=== PATIENT | male | born 1980 | race Caucasian/White ===

== ENCOUNTER 2018-02-16 16:50 | Emergency (ER) | payer MEDICAID ==
[2018-02-16] MEDS ORDERED: cephALEXin 250 MG CAPSULE PO STA (17:54)
[2018-02-16] MEDS ORDERED: oxyCOD/ACETAMIN 5 MG/325 MG TABLET PO STA (17:54)
[2018-02-16 18:57] VITALS: BP 120/57
--- NOTE | 2018-02-16 18:59 | ED Physician Documentation ---
History of Present Illness - Stated complaint Stated Complaint: LT INDEX FINGER PX - Chief complaint Chief Complaint: General - Additonal information Additional information: hx from pt healthy 37 y/o male was doing yard work wearing gloves and now his L index finger is painful and swoleln distally, he doesnt know if he has a splinter, also has onychomycosis Review of Systems Constitutional: denies: Fever Musculoskeletal: reports: Extremity pain, Extremity swelling Immunocompromised: denies: Immunocompromised PD PAST MEDICAL HISTORY - Past Medical History Past Medical History: Yes Cardiovascular: None Respiratory: Asthma Endocrine/Autoimmune: None Psych: Bipolar disorder, Other Derm: Psoriasis - Past Surgical History Past Surgical History: Yes Ortho: Spine surgery HEENT: Other - Present Medications Home Medications: Ambulatory Orders Medication Instructions Recorded Confirmed Cephalexin [Keflex] 500 mg PO Q6H #28 capsule 02/16/18 Ibuprofen [Motrin] 400 mg PO Q6H PRN #20 tablet 02/16/18 Oxycodone HCl/Acetaminophen 1 - 2 each PO Q6HR PRN #8 tablet 02/16/18 [Percocet 5-325 mg Tablet] - Allergies Allergies/Adverse Reactions: Allergies Allergy/AdvReac Type Severity Reaction Status Date / Time No Known Drug Allergies Allergy Verified 02/16/18 16:58 - Social History Does the pt smoke?: Yes Smoking Status: Current every day smoker Does the pt drink ETOH?: Yes Does the pt have substance abuse?: No - Immunizations Immunizations are current?: Yes Immunizations: TDAP current <10years - POLST Patient has POLST: No PD ED PE NORMAL - Vitals Vital signs reviewed: Yes - Derm Derm: Other (L hand finger tip to DIP is painddul and swoelln diffusely, no specifically a felon or paronychia, no streaking, pain with ROM, MSV intact, no palpabl or visible retained FB and also checked with bedside sono using 250ml saline bag as a stand off and no FB seen on sono either, xray unlikely to help for organic FB concern) Results - Vitals Vitals: Vital Signs - 24 hr 02/16/18 16:57 Temperature 35.4 C L Heart Rate 68 Respiratory 18 Rate Blood Pressure 121/67 O2 Saturation 98 Oxygen O2 Source Room air Departure - Departure Disposition: 01 Home, Self Care Clinical Impression: Cellulitis of finger of left hand Condition: Good Instructions: ED Infec Skin Cellulitis Follow-Up: Negrito Gibbons MD [Primary Care Provider] - Prescriptions: Oxycodone HCl/Acetaminophen [Percocet 5-325 mg Tablet] 1 - 2 each PO Q6HR PRN # 8 tablet PRN Reason: Severe Pain Cephalexin [Keflex] 500 mg PO Q6H #28 capsule Ibuprofen [Motrin] 400 mg PO Q6H PRN #20 tablet PRN Reason: Pain Comments: Give the antibiotics a chance to work overnight (another dose before bed and one in the morning, then continue every 6 hr) If not improving by tomorrow morning, come back and see me in the ER any time after 7 AM Motrin and percocet for the pain Forms: Activity restrictions
== END 2018-02-16 19:02 | disposition home or self-care (01) ==
LOC: ED 16:50
DX: L03.012 Cellulitis of left finger (principal); J45.909 Unspecified asthma, uncomplicated; F17.200 Nicotine dependence, unspecified, uncomplicated
CPT/HCPCS: 99283; A9270

== ENCOUNTER 2018-02-18 11:56 | Emergency (ER) | payer MEDICAID ==
[2018-02-18 12:03] VITALS: BP 140/75
--- NOTE | 2018-02-18 13:16 | XRAY Preliminary Report ---
Exam: XR FINGER(S) LT IMPRESSION: Markedly abnormal distal two thirds second distal phalanx. Differential includes recent c rendon fracture and partial amputation versus osteomyelitis. Correlate clinically to differentiate. [facility] SITE ID: [id number]
--- NOTE | 2018-02-18 13:21 | XRAY Report ---
EXAM: LEFT SECOND/INDEX DIGIT RADIOGRAPHY EXAM DATE: 02/18/2018 01:01 PM. CLINICAL HISTORY: Swelling, pain distal phalanx left index finger. COMPARISON: None. TECHNIQUE: 3 views. FINDINGS: Bones: Comminuted fragmentation of the demineralized and small volume of bone involving the distal tw o-thirds second distal phalanx. Sharp demarcation transversely along the proximal metaphysis with the base of this bone normal caliber and normally ossified. Joints: Normal. No subluxations. Soft Tissues: Extensive edema tip of the finger. No radiopaque foreign body. IMPRESSION: Markedly abnormal distal two-thirds second distal phalanx. Differential includes recent c rendon fracture with partial amputation versus osteomyelitis. Correlate clinically to differentiate. [facility] Referring Provider Line: [phone] SITE ID: [id number]
--- NOTE | 2018-02-18 13:45 | ED Physician Documentation ---
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 The swelling started at least 1 week ago and has been gradually increasing since that time. He was seen in the emergency department here 2 days ago and a bedside ultrasound was performed, revealing no evidence of foreign body or fluid collection. He was started on cephalexin at that time. He returns today because of persistent swelling and increased pain. He denies any recent traumatic injury. He is right-hand dominant. Tetanus status is up-to-date. Review of Systems Constitutional: denies: Fever GI: denies: Nausea, Vomiting Skin: denies: Rash Musculoskeletal: reports: Extremity swelling (Left index fingertip.) Neurologic: denies: Focal weakness, Numbness PD PAST MEDICAL HISTORY - Past Medical History Past Medical History: Yes Cardiovascular: None Respiratory: Asthma Endocrine/Autoimmune: None Psych: Bipolar disorder, Other Derm: Psoriasis - Past Surgical History Past Surgical History: Yes Ortho: Spine surgery HEENT: Other - Present Medications Home Medications: Ambulatory Orders Medication Instructions Recorded Confirmed Cephalexin [Keflex] 500 mg PO Q6H #28 capsule 02/16/18 02/18/18 - Allergies Allergies/Adverse Reactions: Allergies Allergy/AdvReac Type Severity Reaction Status Date / Time No Known Drug Allergies Allergy Verified 02/16/18 16:58 - Social History Does the pt smoke?: Yes Smoking Status: Current every day smoker Does the pt drink ETOH?: Yes ETOH Use: Beer Does the pt have substance abuse?: No - Immunizations Immunizations are current?: Yes Immunizations: TDAP current <10years - POLST Patient has POLST: No PD ED PE NORMAL - Vitals Vital signs reviewed: Yes (systolic hypertension) - General General: Alert and oriented X 3, Well developed/nourished - HEENT HEENT: Atraumatic - Respiratory Respiratory: No respiratory distress - Derm Derm: No rash - Extremities Extremities: Other (There is swelling and erythema of the distal phalanx of the left index finger, with associated tenderness to palpation. There is onychomycosis of the fingernail. There is no tenderness at the PIP and MCP joints, no lymphangitic streaking, and no break in the integument. Distal neurovascular is intact.) - Neuro Neuro: Alert and oriented X 3, No motor deficit, No sensory deficit Results - Vitals Vitals: Vital Signs - 24 hr 02/18/18 12:01 Temperature 36.2 C L Heart Rate 85 Respiratory 15 Rate Blood Pressure 140/75 H O2 Saturation 99 Oxygen O2 Source Room air - Rads (name of study) Left index finger Radiology: Prelim report reviewed, EMP read contemporaneously, See rad report ( Markedly abnormal distal two thirds of the second distal phalanx. Differential includes recent crush fracture with partial amputation versus osteomyelitis. Correlate clinically to differentiate.) PD MEDICAL DECISION MAKING - ED course Complexity details: reviewed old records, reviewed results, re-evaluated patient , considered differential, d/w patient ED course: The patient's presentation is most consistent with osteomyelitis of the distal phalanx of the left index finger. There does not appear to be involvement of the DIP joint. Treatment in the emergency department included administration of ibuprofen 800 mg orally and vancomycin 125 mg orally. I advised the patient that surgical intervention was the most appropriate course of treatment. 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 I advised him that I would be willing to talk to his submarine advisory team watch officer and advise the urgency of intervention for this bony infection, but the patient was insistent that he keep the appointment. After filling out the information on the AMA form , I went back to the patient's room and found that he had disappeared. I contacted Dr. Lyons, the orthopedic surgeon, to advise him that it is likely the patient will return to the emergency department sometime within the next 24- 48 hours. Departure - Departure Disposition: Against Medical Advice Clinical Impression: Osteomyelitis of finger of left hand Condition: Stable Discharge Date/Time: 02/18/18 14:04
[2018-02-18] MEDS ORDERED: IBUPROFEN 800 MG TABLET PO STA (13:52)
[2018-02-18] MEDS ORDERED: VANCOMYCIN 125 MG CAPSULE PO SCH (14:00)
--- NOTE | 2018-02-18 15:28 | ED Physician Documentation ---
ED Addendum - Addendum Addendum: 02/18/18 15:27 unscheduled return visit - chart accessed for follow up and educational purposes
== END 2018-02-18 14:04 | disposition left against medical advice (07) ==
LOC: ED 11:56
DX: M86.9 Osteomyelitis, unspecified (principal); B35.1 Tinea unguium; F17.200 Nicotine dependence, unspecified, uncomplicated
CPT/HCPCS: 73140; 99282; 99284

== ENCOUNTER 2018-02-28 19:41 | Emergency (ER) | payer MEDICAID ==
--- NOTE | 2018-02-28 20:11 | ED Physician Documentation ---
History of Present Illness - Stated complaint Stated Complaint: FINGER SWOLLEN - Chief complaint Chief Complaint: Ext Problem - History obtained from History obtained from: Patient - History of Present Illness Timing: How many weeks ago (3) Pain level now: 7 Improved by: rest Worsened by: movement - Additonal information Additional information: c/o atraumatic pain, swelling of gradual onset 3 weeks ago, left second finger ( he is right-hand dominant). 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 he was T+R from this ED 02/16, prescribed keflex and percocet, returned 02/18 for worsening swelling, pain and had xray performed of the digit, revealing "markedly abnormal distal two-thirds second distal phalanx " (per radiology interpretation) with "extensive edema tip of the finger. No radiopaque foreign body". differential included osteomyelitis; unfortunately, at that time, patient left AMA (insisted he had to meet with corporation officer). He returns at this time for worsening pain, swelling. He completed the keflex. He did call and made appointment with PMD, but soonest available appointment is 03/16. Review of Systems Constitutional: denies: Fever, Chills, Sweats Musculoskeletal: reports: Extremity pain, Extremity swelling Neurologic: denies: Focal weakness, Numbness PD PAST MEDICAL HISTORY - Past Medical History Cardiovascular: None Respiratory: Asthma Endocrine/Autoimmune: None Psych: Bipolar disorder, Other Derm: Psoriasis - Past Surgical History Past Surgical History: Yes Ortho: Spine surgery HEENT: Other - Present Medications Home Medications: Ambulatory Orders Medication Instructions Recorded Confirmed Cephalexin [Keflex] 500 mg PO Q6H #28 capsule 02/16/18 02/18/18 Ciprofloxacin [Cipro] 750 mg PO Q12H 10 Days #60 tablet 02/28/18 Clindamycin HCl [Cleocin HCl] 300 mg PO Q6HR 10 Days #40 capsule 02/28/18 oxyCODONE/ACET 5/325 [Percocet 5 1 - 2 each PO Q6H PRN #14 tablet 02/28/18 mg/325 mg] - Allergies Allergies/Adverse Reactions: Allergies Allergy/AdvReac Type Severity Reaction Status Date / Time No Known Drug Allergies Allergy Verified 02/28/18 19:49 - Social History Does the pt smoke?: Yes Smoking Status: Current every day smoker Does the pt drink ETOH?: Yes Does the pt have substance abuse?: No - Immunizations Immunizations are current?: Yes Immunizations: TDAP current <10years - POLST Patient has POLST: No PD ED PE NORMAL - Vitals Vital signs reviewed: Yes - General General: Alert and oriented X 3, No acute distress, Well developed/nourished - Neuro Neuro: No sensory deficit, Other (unable to flex left second finger at PIP and DIP due to both pain and restriction of movement from swelling) PD ED PE EXPANDED - Derm Derm: Rash (confluent erythema left second finger, distally) - Extremities Extremities: Tenderness, Limited ROM, Swelling KOFFI UE/Hands Visual: 1 - swelling, tenderness Results - Vitals Vitals: Vital Signs - 24 hr 02/28/18 02/28/18 19:46 22:38 Temperature 36.0 C L 36.5 C Heart Rate 100 89 Respiratory 16 18 Rate Blood Pressure 135/86 H 120/76 O2 Saturation 100 100 Oxygen O2 Source Room air - Labs Labs: Laboratory Tests 02/28/18 02/28/18 02/28/18 20:35 20:35 20:35 WBC 6.1 RBC 4.22 L Hgb 13.2 L Hct 39.4 L MCV 93.2 MCH 31.2 H MCHC 33.4 RDW 14.7 Plt Count 255 MPV 8.3 Neut # 4.1 Lymph # 1.4 L [place] # 0.4 Eos # 0.1 Baso # 0.1 Absolute Nucleated RBC 0.01 Nucleated RBC % 0.1 ESR 12 Sodium 137 Potassium 4.0 Chloride 98 L Carbon Dioxide 31 Anion Gap 8.0 BUN 15 Creatinine 0.8 Estimated GFR (MDRD) 110 Glucose 96 Calcium 9.3 C-Reactive Protein < 1.0 - Rads (name of study) left second finger xrays Radiology: Prelim report reviewed, See rad report PD MEDICAL DECISION MAKING - ED course Complexity details: reviewed old records, reviewed results, re-evaluated patient , considered differential, d/w patient ED course: There is no fluctuance or evidence of drainable collection on exam. D/W Dr. Swann (on-call orthopedic surgery); will see patient outpatient setting, no need for admission to hospital at this time (patient is not septic/toxic appearing, he is afebrile, and his blood tests including WBC, ESR, and CRP are all normal). Given antibiotics and pain medications (he is on Suboxone, but this is certainly an acutely painful condition that would indicate opiate pain medication) and instructed to return if worse, but that of paramount importance is follow up with orthopedics within next few days. Patient understands that surgery, specifically amputation of finger tip, is possible (even likely) outcome. Departure - Departure Disposition: Home, Self Care Clinical Impression: Osteomyelitis of finger of left hand Condition: Good Instructions: Osteomyelitis Dc Follow-Up: Arnel Swann MD [Provider Admit Priv/Credential] - (Call Thursday (or Thursday if the office isn't open Thursday) to arrange for next available appointment; I discussed your case with Dr. Hue brower, and you should be seen by mid-week) Prescriptions: Clindamycin HCl [Cleocin HCl] 300 mg PO Q6HR 10 Days #40 capsule Ciprofloxacin [Cipro] 750 mg PO Q12H 10 Days #60 tablet oxyCODONE/ACET 5/325 [Percocet 5 mg/325 mg] 1 - 2 each PO Q6H PRN #14 tablet PRN Reason: Pain Discharge Date/Time: 02/28/18 22:38
[2018-02-28] MEDS ORDERED: MORPHINE 2 MG/ML SYRINGE IVP STA ×2 (20:27→22:17)
[2018-02-28 20:45] LABS: BASOPHILS # (AUTO) 0.1 10^3/uL (0.0-0.1); BASOPHILS % (AUTO) 1.2 %; EOSINOPHILS # (AUTO) 0.1 10^3/uL (0.0-0.7); EOSINOPHILS % (AUTO) 1.4 %; HGB - HEMOGLOBIN 13.2 g/dL (14.0-18.0); LYMPHOCYTES # (AUTO) 1.4 10^3/uL (1.5-3.5); LYMPHOCYTES % (AUTO) 23.1 %; MEAN CORPUSCULAR HEMOGLOBIN 31.2 pg (27.0-31.0); MEAN CORPUSCULAR HGB CONC 33.4 g/dL (32.0-36.0); MEAN CORPUSCULAR VOLUME 93.2 fL (80.0-94.0); MEAN PLATELET VOLUME 8.3 fL (7.4-11.4); MONOCYTES # (AUTO) 0.4 10^3/uL (0.0-1.0); MONOCYTES % (AUTO) 6.9 %; NEUTROPHILS # (AUTO) 4.1 10^3/uL (1.5-6.6); NEUTROPHILS % (AUTO) 67.4 %; PLT - PLATELET COUNT 255 10^3/uL (130-450); RED BLOOD COUNT 4.22 10^6/uL (4.70-6.10); RED CELL DISTRIBUTION WIDTH 14.7 % (12.0-15.0); WHITE BLOOD COUNT 6.1 x10^3/uL (4.8-10.8)
[2018-02-28 21:01] LABS: BUN - BLOOD UREA NITROGEN 15 mg/dL (6-20); CALCIUM 9.3 mg/dL (8.5-10.3); CARBON DIOXIDE - CO2 31 mmol/L (21-32); CHLORIDE 98 mmol/L (101-111); CREATININE 0.8 mg/dL (0.6-1.2); CRP - C-REACTIVE PROTEIN < 1.0 mg/dL (0-1.0); GFR - MDRD 110 (>89); GLUCOSE 96 mg/dL (70-100); SODIUM 137 mmol/L (135-145)
--- NOTE | 2018-02-28 21:22 | XRAY Preliminary Report ---
Exam: XR FINGER(S) LT IMPRESSION: Osteomyelitis distal phalanx of second digit. [facility] SITE ID: [id number]
--- NOTE | 2018-02-28 21:23 | XRAY Report ---
EXAM: LEFT SECOND DIGIT RADIOGRAPHY EXAM DATE: 02/28/2018 08:51 PM. CLINICAL HISTORY: Fingertip infection, no trauma. COMPARISON: 02/18/2018. TECHNIQUE: 3 views. FINDINGS: Bones: Again seen is ostial lysis and fragmentation of the distal phalanx of the second digit. Joints: Normal. No subluxations. Soft Tissues: Normal. No soft tissue swelling. IMPRESSION: Osteomyelitis distal phalanx of second digit. [facility] Referring Provider Line: [phone] SITE ID: [id number]
[2018-02-28] MEDS ORDERED: oxyCODONE/ACET 5/325 Prepack 4 PO STA (22:17)
[2018-02-28] MEDS ORDERED: CLINDAMYCIN 150 MG CAPSULE PO STA (22:17)
[2018-02-28] MEDS ORDERED: CIPROFLOXACIN 250 MG TABLET PO STA (22:17)
[2018-02-28 22:39] VITALS: BP 120/76
== END 2018-02-28 22:38 | disposition home or self-care (01) ==
LOC: ED 19:41
DX: F17.200 Nicotine dependence, unspecified, uncomplicated (principal)
CPT/HCPCS: 36415; 73140; 80048; 85025; 85651; 86140; 96374; 96376; 99283; 99284; A9270; J2270

== ENCOUNTER 2018-03-16 12:02 | Emergency (ER) | payer MEDICAID ==
[2018-03-16] MEDS ORDERED: TETANUS/DIPHTHERIA/PERTUSSIS 0.5 ML SYRINGE IM ONE (12:12)
[2018-03-16] MEDS ORDERED: BUFFERED LIDOCAINE 10 ML SYRINGE ONE (12:26)
--- NOTE | 2018-03-16 12:32 | ED Physician Documentation ---
PD HPI UPPER EXT INJURY - Stated complaint Stated Complaint: L HAND LAC - Chief complaint Chief Complaint: Wound - History obtained from History obtained from: Patient - History of Present Illness Location: Left, Finger (This is a right-handed gentleman who has been undergoing treatment with Dr. Ayon for osteomyelitis of the left second distal phalanx with clindamycin and ciprofloxacin for the last 3 weeks. He tripped and fell today and impacted his hand on the sharp part of the bumper of a truck and now has a laceration on the proximal part of that same digit. Tetanus is up-to-date.) Review of Systems Constitutional: reports: Reviewed and negative Throat: reports: Reviewed and negative Cardiac: reports: Reviewed and negative Respiratory: reports: Reviewed and negative PD PAST MEDICAL HISTORY - Past Medical History Past Medical History: Yes Cardiovascular: None Respiratory: Asthma Endocrine/Autoimmune: None Psych: Bipolar disorder, Other Derm: Psoriasis - Past Surgical History Past Surgical History: Yes Ortho: Spine surgery HEENT: Other - Present Medications Home Medications: Ambulatory Orders Medication Instructions Recorded Confirmed HYDROcod/ACETAM 5/325 [[place] 5/325] 1 - 2 ea PO Q6H PRN #7 tablet 03/16/18 - Allergies Allergies/Adverse Reactions: Allergies Allergy/AdvReac Type Severity Reaction Status Date / Time No Known Drug Allergies Allergy Verified 02/28/18 19:49 - Social History Does the pt smoke?: Yes Smoking Status: Current every day smoker Does the pt drink ETOH?: Yes Does the pt have substance abuse?: No - Immunizations Immunizations are current?: Yes Immunizations: TDAP current <10years - POLST Patient has POLST: No PD ED PE NORMAL - Vitals Vital signs reviewed: Yes - General General: Alert and oriented X 3, No acute distress - Extremities Extremities: Other (Over the left digit There is a 2 cm deep laceration just distal to the MCP dorsally and the extensor tendon is visible and clearly mostly lacerated. He does have swelling and deformity of the nail of that digit distally too. Normal sensation.) - Neuro Neuro: Alert and oriented X 3, Normal speech Results - Vitals Vitals: Vital Signs - 24 hr 03/16/18 12:05 Temperature 36.4 C L Heart Rate 107 H Respiratory 18 Rate Blood Pressure 123/70 O2 Saturation 97 Oxygen O2 Source Room air Procedures - Laceration (location) L 2nd finger Length in cm: 2 Wound type: Linear Neurovascular status: Sensory intact, Vascular intact. No: Motor intact Tendon involvement: Tendon Injury. No: Tendon intact Anesthesia: Lidocaine 1%, With bicarb Wound Preparation: Betadine, Irrigated copiously NS Skin layer closure: Nylon, Interrupted, Size #-0 - enter number (4-0), Sutures - enter # (6) Other: Patient tolerated well, No complications, Neurovascular intact, Tetanus UTD Complexity: Simple - Splint (location) L hand Splint applied by: Physician Type of splint: Fiberglass, Short arm, Other (radial gutter) Other: Patient tolerated well, No complications, Neurovascular intact PD MEDICAL DECISION MAKING - ED course ED course: 37-year-old gentleman with osteomyelitis of the left second finger distally now with a proximal laceration of the same digit with an almost complete extensor tendon laceration. It was thoroughly irrigated and closed and he was advised to stay on his antibiotics. He was placed in a radial gutter splint. The case was discussed by phone with Dr. Diehl who agreed with this plan of care especially given the complexity of the two diagnoses in the same digit. - Sepsis Event Vital Signs: Vital Signs - 24 hr 03/16/18 12:05 Temperature 36.4 C L Heart Rate 107 H Respiratory 18 Rate Blood Pressure 123/70 O2 Saturation 97 Oxygen O2 Source Room air Departure - Departure Disposition: 01 Home, Self Care Clinical Impression: Extensor tendon laceration of finger with open wound Qualifiers: Encounter type: initial encounter Qualified Code(s): S66.529A - Laceration of intrinsic muscle, fascia and tendon of unspecified finger at wrist and hand level, initial encounter Condition: Good Record reviewed to determine appropriate education?: Yes Instructions: ED Laceration Hand Follow-Up: Yesi Ayon MD [Provider Admit Priv/Credential] - Within 3 Days Prescriptions: HYDROcod/ACETAM 5/325 [[place] 5/325] 1 - 2 ea PO Q6H PRN #7 tablet PRN Reason: Pain Comments: Continue your current antibiotics, keep the splint on and dry at all times, do not remove it at all. Follow-up with Dr. Ayon in the clinic in the next few days, call today for an appointment.
[2018-03-16 13:07] VITALS: BP 125/74
== END 2018-03-16 13:06 | disposition home or self-care (01) ==
LOC: ED 12:02
DX: S66.521A Laceration of intrinsic muscle, fascia and tendon of left index finger at wrist and hand level, initial encounter (principal); M86.142 Other acute osteomyelitis, left hand; W01.198A Fall on same level from slipping, tripping and stumbling with subsequent striking against other object, initial encounter; F17.200 Nicotine dependence, unspecified, uncomplicated
CPT/HCPCS: 12001; 99283

== ENCOUNTER 2018-03-19 15:02 | Emergency (ER) | payer MEDICAID ==
[2018-03-19 15:06] VITALS: BP 111/79
--- NOTE | 2018-03-19 15:31 | ED Physician Documentation ---
PD HPI UPPER EXT INJURY - Stated complaint Stated Complaint: L FINGER PX - Chief complaint Chief Complaint: General - History of Present Illness Location: Left, Finger (index) Recently seen: Emergency Dept (3 days ago.) - Additonal information Additional information: The patient is a 37-year-old male who presents with pain in his left index finger. He has been on clindamycin for the past 3 weeks for osteomyelitis of the distal phalanx. He was seen in the emergency department 3 days ago with laceration at the base of the same finger. He injured it when he had fallen and scraped his finger on a sharp edge of a truck bumper. Review of the medical record reveals extensor tendon involvement. The patient has removed the splint that had been applied during that emergency department visit. Review of Systems Constitutional: denies: Fever Skin: reports: Laceration (s) (Left index finger). denies: Rash Musculoskeletal: reports: Extremity pain (Left index finger) Neurologic: denies: Focal weakness, Numbness PD PAST MEDICAL HISTORY - Past Medical History Cardiovascular: None Respiratory: Asthma Endocrine/Autoimmune: None Psych: Bipolar disorder, Other Derm: Psoriasis - Past Surgical History Past Surgical History: Yes Ortho: Spine surgery HEENT: Other - Present Medications Home Medications: Ambulatory Orders Medication Instructions Recorded Confirmed oxyCODONE/ACET 5/325 [Percocet 5 1 tab PO Q4-6H PRN #15 tablet 03/19/18 mg/325 mg] - Allergies Allergies/Adverse Reactions: Allergies Allergy/AdvReac Type Severity Reaction Status Date / Time No Known Drug Allergies Allergy Verified 03/19/18 15:56 - Social History Does the pt smoke?: Yes Smoking Status: Current every day smoker Does the pt drink ETOH?: Yes Does the pt have substance abuse?: No - Immunizations Immunizations are current?: Yes Immunizations: TDAP current <10years - POLST Patient has POLST: No PD ED PE NORMAL - Vitals Vital signs reviewed: Yes (Normal) - General General: Alert and oriented X 3, Well developed/nourished - HEENT HEENT: Atraumatic - Respiratory Respiratory: No respiratory distress - Derm Derm: No rash - Extremities Extremities: Other (Laceration at the dorsal medial aspect of the index finger is intact with sutures. There is no associated warmth or erythema. Distal phalanx is slightly swollen, but with decreased tenderness when compared to prior evaluation when he was initially diagnosed with osteomyelitis. Distal neurovascular is intact.) - Neuro Neuro: Alert and oriented X 3, No motor deficit, No sensory deficit Results - Vitals Vitals: Vital Signs - 24 hr 03/19/18 15:04 Temperature 36.7 C Heart Rate 96 Respiratory 18 Rate Blood Pressure 111/79 O2 Saturation 100 Oxygen O2 Source Room air Procedures - Splint (location) left index finger Splint applied by: Physician Type of splint: Fiberglass, Other (finger splint) Other: Patient tolerated well, No complications, Neurovascular intact PD MEDICAL DECISION MAKING - ED course Complexity details: reviewed old records, re-evaluated patient, considered differential, d/w patient ED course: The patient's presentation is consistent with posttraumatic pain in the left index finger, in which there was extensor tendon involvement. His clinical presentation does not suggest tenosynovitis. Treatment in the emergency department included application of a fiberglass splint, incorporating the index and middle fingers. He is discharged with prescription for Percocet, 15 tablets. I discussed with him the expected course of injury, symptomatic treatment and outpatient follow-up, as well as potentially worrisome signs or symptoms that should prompt reevaluation in the emergency department. - Sepsis Event Vital Signs: Vital Signs - 24 hr 03/19/18 15:04 Temperature 36.7 C Heart Rate 96 Respiratory 18 Rate Blood Pressure 111/79 O2 Saturation 100 Oxygen O2 Source Room air Departure - Departure Disposition: 01 Home, Self Care Clinical Impression: Osteomyelitis of finger of left hand Finger laceration involving tendon Qualifiers: Encounter type: subsequent encounter Qualified Code(s): S61.219D - Laceration without foreign body of unspecified finger without damage to nail, subsequent encounter Condition: Stable Instructions: ED Laceration Hand Follow-Up: Yesi Ayon MD [Provider Admit Priv/Credential] - Prescriptions: oxyCODONE/ACET 5/325 [Percocet 5 mg/325 mg] 1 tab PO Q4-6H PRN #15 tablet PRN Reason: Pain Comments: Keep the splint clean and dry. Continue taking clindamycin as previously prescribed. You can use Percocet as prescribed if needed for pain. Follow-up with orthopedics as planned. Return to the emergency department if you develop increasing pain or swelling, any sign of infection, or otherwise worsening symptoms. Discharge Date/Time: 03/19/18 15:43
== END 2018-03-19 15:43 | disposition home or self-care (01) ==
LOC: ED 15:02
DX: M86.9 Osteomyelitis, unspecified (principal); S61.211A Laceration without foreign body of left index finger without damage to nail, initial encounter; F17.200 Nicotine dependence, unspecified, uncomplicated; W19.XXXD Unspecified fall, subsequent encounter
CPT/HCPCS: 29130; 99283

== ENCOUNTER 2018-07-21 22:11 | Emergency (ER) | payer MEDICAID ==
--- NOTE | 2018-07-21 23:11 | ED Physician Documentation ---
PD HPI BACK INJURY - Stated complaint Stated Complaint: BACK PX - History obtained from History obtained from: Patient - History of Present Illness Location: Left, Lower Type of injury: Twist (he was helping person move, with lifting of some heavy objects, and felt pain in low back with twisting while carrying. Has had pain and spasms lower back.) Timing - onset: Yesterday Timing - details: Gradual onset, Still present Quality: Pain, Spasm Improved by: Rest. No: Meds (ibuprofen) Worsened by: Moving Associated symptoms: No: Fever, Weakness, Numbness, Incontinent of urine Contributing factors: Prior back surgery Similar symptoms before: Diagnosis (low back pain with sciatica, prior laminectomy and discectomy, with baseline radicular symptoms lower leg/foot on left. Has exac pain periodically if overactive or overuse.) Recently seen: Not recently seen Review of Systems Constitutional: denies: Fever, Chills Nose: denies: Rhinorrhea / runny nose, Congestion Throat: denies: Sore throat Respiratory: denies: Cough GI: denies: Vomiting, Constipation, Diarrhea : denies: Incontinent Skin: denies: Rash PD PAST MEDICAL HISTORY - Past Medical History Past Medical History: No Cardiovascular: None Respiratory: Asthma Neuro: None Endocrine/Autoimmune: None GI: None : None HEENT: None Psych: Bipolar disorder, Schizophrenia Musculoskeletal: None Derm: None - Past Surgical History Past Surgical History: Yes Ortho: Spine surgery HEENT: Other - Present Medications Home Medications: Ambulatory Orders Medication Instructions Recorded Confirmed oxyCODONE/ACET 5/325 [Percocet 5 1 tab PO Q4-6H PRN #15 tablet 03/19/18 mg/325 mg] Dexamethasone [Decadron] 4 mg PO DAILY #5 tablet 07/22/18 HYDROcod/ACETAM 5/325 [[place] 5/325] 1 tab PO Q6H PRN #15 tablet 07/22/18 Methocarbamol [Robaxin] 500 mg PO Q6H PRN #25 tablet 07/22/18 Naproxen 375 mg PO BID #20 tablet 07/22/18 - Allergies Allergies/Adverse Reactions: Allergies Allergy/AdvReac Type Severity Reaction Status Date / Time Penicillins Allergy Unknown Verified 07/21/18 22:18 - Social History Does the pt smoke?: Yes Smoking Status: Current every day smoker Does the pt drink ETOH?: Yes Does the pt have substance abuse?: No - Immunizations Immunizations are current?: Yes Immunizations: TDAP current <10years - POLST Patient has POLST: No PD ED PE NORMAL - Vitals Vital signs reviewed: Yes - General General: Alert and oriented X 3, No acute distress, Well developed/nourished, Other (smell of alcohol on his breath, but he does not seem intoxicated. ) - Neck Neck: Supple, no meningeal sign, No adenopathy - Cardiac Cardiac: RRR, No murmur - Respiratory Respiratory: Clear bilaterally - Abdomen Abdomen: Normal bowel sounds, Soft, Non tender, Non distended - Back Back: No spinal TTP (but is tender in muscle at upper left SI area. ) - Derm Derm: Normal color, Warm and dry - Extremities Extremities: No deformity, Normal ROM s pain - Neuro Neuro: Alert and oriented X 3, No motor deficit, Normal speech, Other (some decreased sensation lateral left foot and lower leg, but he says is baseline post back surgery/disc problem. ) Results - Vitals Vitals: Vital Signs - 24 hr 07/21/18 07/22/18 07/22/18 22:15 00:48 01:52 Temperature 35.7 C L Heart Rate 107 H 69 78 Respiratory 18 14 14 Rate Blood Pressure 117/78 125/81 H 128/86 H O2 Saturation 93 100 94 Oxygen O2 Source Room air PD MEDICAL DECISION MAKING - ED course Complexity details: re-evaluated patient, considered differential (He has had prior back surgery and has having low back pain in the left SI area after lifting and twisting. He does not have any acute weakness in the legs. He has not had any bowel or bladder dysfunction. I would treated with anti- inflammatories muscle relaxants and pain meds. He is stable for discharge. He does not have a ride at this time and is says he needs to wait for a bus in the morning. He is allowed to rest here in the ER while awaiting that.), d/w patient Departure - Departure Disposition: 01 Home, Self Care Clinical Impression: Low back strain Qualifiers: Encounter type: initial encounter Qualified Code(s): S39.012A - Strain of muscle, fascia and tendon of lower back, initial encounter Condition: Stable Record reviewed to determine appropriate education?: Yes Instructions: ED Sprain Strain Lumbar Prescriptions: Dexamethasone [Decadron] 4 mg PO DAILY #5 tablet HYDROcod/ACETAM 5/325 [[place] 5/325] 1 tab PO Q6H PRN #15 tablet PRN Reason: Pain Methocarbamol [Robaxin] 500 mg PO Q6H PRN #25 tablet PRN Reason: Spasms Naproxen 375 mg PO BID #20 tablet Comments: Heat and gentle stretching for the low back to reduce stiffness. Naproxen twice daily for the next 7-10 days. Decadron also an anti-inflammatory daily for 5 more days. Robaxin muscle relaxant for stiffness and spasms. Add Tylenol or hydrocodone if needed for pains. Recheck if not improved over the next several days.
[2018-07-21] MEDS ORDERED: DEXAMETHASONE 10 MG/ML VIAL PO STA (23:25)
[2018-07-21] MEDS ORDERED: METHOCARBAMOL 500 MG TABLET PO STA (23:25)
[2018-07-21] MEDS ORDERED: HYDROcod/ACETAM 5/325 MG TABLET PO STA (23:25)
[2018-07-21] MEDS ORDERED: NAPROXEN 250 MG TABLET PO STA (23:25)
[2018-07-22 03:28] VITALS: BP 117/78
== END 2018-07-22 03:30 | disposition home or self-care (01) ==
LOC: ED 22:11
DX: S39.012A Strain of muscle, fascia and tendon of lower back, initial encounter (principal); F17.200 Nicotine dependence, unspecified, uncomplicated; X50.1XXA Overexertion from prolonged static or awkward postures, initial encounter; X50.0XXA Overexertion from strenuous movement or load, initial encounter; Y93.89 Activity, other specified
CPT/HCPCS: 99283; A9270

== ENCOUNTER 2019-06-24 15:02 | Emergency (ER) | payer MEDICAID ==
[2019-06-24 15:14] VITALS: BP 141/94
--- NOTE | 2019-06-24 15:31 | ED Physician Documentation ---
PD HPI HEENT - Stated complaint Stated Complaint: MOUTH PX - Chief complaint Chief Complaint: Heent - History obtained from History obtained from: Patient - History of Present Illness Timing - onset: How many days ago (3) Timing - details: Still present Location: Mouth Similar symptoms before: Has not had sx before - Additional information Additional information: The patient is a 38-year-old edentulous male who wears upper dentures, and presents complaining of sores along his lower gingiva. 3 days ago he tripped and clenched his jaws as he caught himself from falling. His upper dentures left impressions on his lower gingiva which do not have dentures. He has had pain in his mouth since that time, impairing his ability to chew food or eat. He denies facial swelling or difficulty swallowing. He denies history of similar symptoms in the past. Review of Systems Constitutional: denies: Fever Throat: reports: Oral lesions / sores GI: denies: Nausea, Vomiting Neurologic: denies: Headache PD PAST MEDICAL HISTORY - Past Medical History Cardiovascular: None Respiratory: Asthma Neuro: None Endocrine/Autoimmune: None GI: None : None HEENT: None Psych: Bipolar disorder, Schizophrenia Musculoskeletal: None Derm: None - Past Surgical History Past Surgical History: Yes Ortho: Spine surgery HEENT: Other - Present Medications Home Medications: Ambulatory Orders Medication Instructions Recorded Confirmed oxyCODONE/ACET 5/325 [Percocet 5 1 tab PO Q4-6H PRN #15 tablet 03/19/18 mg/325 mg] HYDROcod/ACETAM 5/325 [[place] 5/325] 1 tab PO Q6H PRN #15 tablet 07/22/18 Methocarbamol [Robaxin] 500 mg PO Q6H PRN #25 tablet 07/22/18 Naproxen 375 mg PO BID #20 tablet 07/22/18 dexAMETHasone [Decadron] 4 mg PO DAILY #5 tablet 07/22/18 - Allergies Allergies/Adverse Reactions: Allergies Allergy/AdvReac Type Severity Reaction Status Date / Time Penicillins Allergy Unknown Verified 06/24/19 15:07 - Social History Does the pt smoke?: Yes Smoking Status: Current every day smoker Does the pt drink ETOH?: Yes Does the pt have substance abuse?: No - Immunizations Immunizations are current?: Yes Immunizations: TDAP current <10years - POLST Patient has POLST: No PD ED PE NORMAL - Vitals Vital signs reviewed: Yes (Initially hypertensive.) - General General: Alert and oriented X 3, Well developed/nourished - HEENT HEENT: Atraumatic, Pharynx benign, Other (Edentulous, with upper dentures. Oral sores are noted along the mandibular gingiva, corresponding to 3 denture impressions on each side. There is no gingival swelling. Oropharynx is nonerythematous.) - Neck Neck: No adenopathy - Respiratory Respiratory: No respiratory distress - Neuro Neuro: Alert and oriented X 3, No motor deficit, Normal speech Results - Vitals Vitals: Oxygen O2 Source Room air PD MEDICAL DECISION MAKING - ED course Complexity details: reviewed old records, considered differential, d/w patient ED course: The patient's presentation is significant for oral sores associated with impaction of upper dentures against lower gingiva. Examination does not reveal evidence of oral infection. I discussed with the patient the use of topical pain reliever such as Orajel. He became upset with me when I advised that this is not the type of injury for which I would consider prescribing narcotic medication. Rather than discuss with me any further he chose to get up and leave the emergency department. Departure - Departure Disposition: ED [place] Clinical Impression: Mouth sores Condition: Stable Discharge Date/Time: 06/24/19 15:35
== END 2019-06-24 15:35 | disposition left against medical advice (07) ==
LOC: ED 15:02
DX: K13.79 Other lesions of oral mucosa (principal); F17.200 Nicotine dependence, unspecified, uncomplicated
CPT/HCPCS: 99281; 99282

== ENCOUNTER 2019-08-17 16:31 | Emergency (ER) | payer MEDICAID ==
[2019-08-17 16:47] VITALS: BP 131/81
--- NOTE | 2019-08-17 17:58 | ED Physician Documentation ---
PD HPI SKIN - Stated complaint Stated Complaint: abscess - Chief complaint Chief Complaint: Wound - History obtained from History obtained from: Patient - History of Present Illness Timing - onset: How many days ago (2) Timing - duration: Days (2) Timing - details: Abrupt onset (had small laceration of finger last week and was healing, then with redness and swelling just over the past 2 days, with focal swelling at DIP area when awoke this morning. Pain up finger.), Still present (worsening) Location: LUE (index finger dorsally) Quality / character: Painful, Discolored (red), Swelling. No: Draining Associated symptoms: No: Fever, Myalgias, N/V/D Contributing factors: Other (he had small skin lac last week. Onset redness and swelling the past 2 days). No: Recent illness Recently seen: Not recently seen Review of Systems Constitutional: reports: Myalgias. denies: Fever, Chills GI: denies: Nausea, Vomiting Neurologic: denies: Focal weakness, Numbness PD PAST MEDICAL HISTORY - Past Medical History Cardiovascular: None Respiratory: Asthma Neuro: None Endocrine/Autoimmune: None GI: None : None HEENT: None Psych: Bipolar disorder, Schizophrenia Musculoskeletal: None Derm: None - Past Surgical History Past Surgical History: Yes Ortho: Spine surgery HEENT: Other - Present Medications Home Medications: Ambulatory Orders Medication Instructions Recorded Confirmed oxyCODONE/ACET 5/325 [Percocet 5 1 tab PO Q4-6H PRN #15 tablet 03/19/18 mg/325 mg] HYDROcod/ACETAM 5/325 [[place] 5/325] 1 tab PO Q6H PRN #15 tablet 07/22/18 Methocarbamol [Robaxin] 500 mg PO Q6H PRN #25 tablet 07/22/18 Naproxen 375 mg PO BID #20 tablet 07/22/18 dexAMETHasone [Decadron] 4 mg PO DAILY #5 tablet 07/22/18 Doxycycline Monohydrate 100 mg PO BID #14 tablet 08/17/19 Mupirocin 1 applic TP TID #15 g 08/17/19 Oxycodone HCl/Acetaminophen 1 - 2 each PO Q6H PRN #14 tablet 08/17/19 [Percocet 5-325 mg Tablet] - Allergies Allergies/Adverse Reactions: Allergies Allergy/AdvReac Type Severity Reaction Status Date / Time Penicillins Allergy Unknown Verified 08/17/19 16:45 - Social History Does the pt smoke?: Yes Smoking Status: Current every day smoker Does the pt drink ETOH?: Yes Does the pt have substance abuse?: No - Immunizations Immunizations are current?: Yes Immunizations: TDAP current <10years - POLST Patient has POLST: No PD ED PE NORMAL - Vitals Vital signs reviewed: Yes - General General: Alert and oriented X 3, No acute distress, Well developed/nourished - Derm Derm: Normal color, Warm and dry - Extremities Extremities: Other (left index finger with 1 cm pustular blister dorsal area DIP and middle phalanx. There is superficial lac at DIP, not to deep structures. The redness/fluctuance is proximal to that. There is mild redness to the dorsal Proximal phalanx. No redness at the hand/wrist nor any tenderness in those a reas. ) Results - Vitals Vitals: Oxygen O2 Source Room air Procedures - Abscess I&D (location) left index finger Preparation: Lidocaine 2 % (digital block) Incision: Incised with scalpel, Purulent drainage, Irrigated Other: Pt tolerated well PD MEDICAL DECISION MAKING - ED course Complexity details: considered differential (local superfic lac that is now infected. Does not seem bony. Did I&D after digital block.), d/w patient Departure - Departure Disposition: 01 Home, Self Care Clinical Impression: Abscess of finger of left hand Condition: Stable Record reviewed to determine appropriate education?: Yes Instructions: ED Abscess IandD Prescriptions: Doxycycline Monohydrate 100 mg PO BID #14 tablet Mupirocin 1 applic TP TID #15 g Oxycodone HCl/Acetaminophen [Percocet 5-325 mg Tablet] 1 - 2 each PO Q6H PRN #14 tablet PRN Reason: pain Comments: Soak the finger in warm water 2-3 times a day for the next couple of days. Clean it otherwise with soap and water. Mupirocin antibiotic ointment 3 times a day to the area. Doxycycline oral antibiotic twice daily for a week for the infection. Tylenol if needed for pains or ibuprofen. Add Percocet if needed. Recheck if not improving well over the next several days and completely better over a week to week and a half. Discharge Date/Time: 08/17/19 18:44
[2019-08-17] MEDS ORDERED: LIDOCAINE 2% 10 ML MDV SUBQ STA (18:03)
[2019-08-17] MEDS ORDERED: DOXYCYCLINE 100 MG TABLET PO STA (18:03)
[2019-08-17] MEDS ORDERED: oxyCODONE 5 MG TABLET PO STA (18:03)
== END 2019-08-17 18:44 | disposition home or self-care (01) ==
LOC: ED 16:31
DX: L02.512 Cutaneous abscess of left hand (principal); F17.200 Nicotine dependence, unspecified, uncomplicated
CPT/HCPCS: 26010; 99283; A9270

== ENCOUNTER 2021-10-17 16:00 | Emergency (ER) | payer MEDICAID ==
[2021-10-17 16:09] VITALS: BP 134/89
== END 2021-10-17 19:50 | disposition left against medical advice (07) ==
LOC: ED 16:00
DX: Z53.21 Procedure and treatment not carried out due to patient leaving prior to being seen by health care provider (principal)

== ENCOUNTER 2024-06-08 15:39 | Emergency (ER) | payer MEDICAID ==
[2024-06-08 16:27] VITALS: BP 141/127; O2SAT 98
== END 2024-06-08 17:30 | disposition left against medical advice (07) ==
LOC: ED 15:39
DX: Z53.21 Procedure and treatment not carried out due to patient leaving prior to being seen by health care provider (principal)
CPT/HCPCS: 80053; 81001; 81003; 83690; 85025; 87086